=== PATIENT | female | born 1965 | race Caucasian/White ===

== ENCOUNTER 2024-03-15 23:20 | Emergency (ER) | payer OTHER ==
[~2024-03-15] VITALS: Ht 165.1 cm; Wt 86.2 kg
[2024-03-16] MEDS ORDERED: CARISOPRODOL 350 MG TABLET ONE (00:55)
[2024-03-16] MEDS ORDERED: HYDROCODONE/APAP 5/325MG TABLET ONE (00:55)
[2024-03-16] MEDS ORDERED: dexaMETHasone SOD PHOSPHATE 1 ML ONE (00:55)
[2024-03-16] MEDS: CARISOPRODOL 350 MG TABLET PO ONE (01:07)
[2024-03-16] MEDS: HYDROCODONE/APAP 5/325MG TABLET PO ONE (01:07)
[2024-03-16] MEDS: dexaMETHasone SOD PHOSPHATE 4 MG/ML VIAL IM ONE (01:07)
[2024-03-16] MEDS ORDERED: PRED50TA PO (03:54)
[2024-03-16] MEDS ORDERED: IBUP-1957 PO (03:54)
[2024-03-16 06:00] VITALS: BP 145/89; TEMP 98; O2SAT 100
== END 2024-03-16 06:01 | disposition home or self-care (01) ==
LOC: ER 23:32
DX: M54.50 Low back pain, unspecified (principal); M54.10 Radiculopathy, site unspecified; M25.552 Pain in left hip; M79.605 Pain in left leg; M62.838 Other muscle spasm; J45.909 Unspecified asthma, uncomplicated; Z79.1 Long term (current) use of non-steroidal anti-inflammatories (NSAID); Z79.52 Long term (current) use of systemic steroids
CPT/HCPCS: 99285; 72131; 93971; 96372; J1100